=== PATIENT | female | born 1975 | race American Indian/Alaskan Native ===

== ENCOUNTER 2017-03-22 23:42 | Emergency (ER) | payer SELFPAY ==
[2017-03-23 00:18] VITALS: BMI 40.0
[2017-03-23] MEDS ORDERED: Morphine 2 mg/ml ISec IVP STA (00:59)
[2017-03-23] MEDS ORDERED: Sodium Chloride 0.9% 1,000 ML IV SCH (01:00)
--- NOTE | 2017-03-23 01:02 | ED PDOC ---
Arrival/HPI - General Chief Complaint: Abdominal Pain Time Seen by Provider: 03/23/17 00:44 Historian: Patient - History of Present Illness Narrative History of Present Illness (Text): 03/23/17 00:58 Evelina Mclean is a 41 year old female, whose past medical history includes UTI , who presents to the Emergency department complaining of lower abdominal pain radiating to right flank for past few days. Patient states pain has been intermittent for the last few days and worsened today. Patient reports associated malodorous urine. Patient notes she recently had abdominal imaging performed in December 2016, which was grossly normal. Patient also complaining of headache. Patient denies any chills, chest pain, shortness of breath, nausea, vomiting, diarrhea, neck pain, dizziness, or any other complaints. PMD: Dr. Bernard Time/Duration: < week (few days) Symptom Onset: Gradual Symptom Course: Unchanged Activities at Onset: Rest, Light Context: Home Past Medical History - Provider Review Nursing Documentation Reviewed: Yes - Past History Past History: Non-Contributing - Infectious Disease Hx of Infectious Diseases: None - Tetanus Immunization Tetanus Immunization: Unknown - Past Medical History Past Medical History: No Previous - Musculoskeletal/Rheumatological Hx Back Pain: Yes - Gastrointestinal Hx Gastrointestinal Disorders: No - Genitourinary/Gynecological Hx Genitourinary Disorders: No - Psychiatric Hx Psychophysiologic Disorder: No Hx Anxiety: No Hx Bipolar Disorder: No Hx Depression: No Hx Emotional Abuse: No Hx Hallucinations: No Hx Panic Disorder: No Hx Post Traumatic Stress Disorder: No Hx Psychosis: No Hx Physical Abuse: No Hx Schizophrenia: No Hx Sexual Abuse: No Hx Substance Use: No - Past Surgical History Past Surgical History: No Previous - Surgical History Hx Musculoskeletal Surgery: Yes (shoulder) Other/Comment: right rotator cuff surgery - Anesthesia Hx Anesthesia: Yes Hx Anesthesia Reactions: No Hx Malignant Hyperthermia: No - Suicidal Assessment Feels Threatened In Home Enviroment: No Family/Social History - Physician Review Nursing Documentation Reviewed: Yes Family/Social History: Unknown Family HX Smoking Status: Never Smoked Hx Alcohol Use: No Hx Substance Use: No Hx Substance Use Treatment: No Allergies/Home Meds Allergies/Adverse Reactions: Allergies No Known Allergies Allergy (Verified 03/23/17 00:18) Home Medications: Home Meds Medication Instructions Recorded Confirmed Ibuprofen [Motrin Tab] 800 mg PO PRN PRN 03/23/17 03/23/17 Tramadol HCl [Ultram] 50 mg PO BID PRN 03/23/17 03/23/17 Review of Systems - Physician Review All systems were reviewed & negative as marked: Yes - Review of Systems Constitutional: Normal. absent: Fevers Eyes: Normal ENT: Normal Respiratory: Normal. absent: SOB, Cough Cardiovascular: Normal. absent: Chest Pain Gastrointestinal: Abdominal Pain. absent: Diarrhea, Vomiting Genitourinary Female: Urine Output Changes (+malodorous urine) Musculoskeletal: Back Pain (+right flank pain). absent: Neck Pain Skin: Normal. absent: Rash Neurological: Headache. absent: Dizziness Endocrine: Normal Hemo/Lymphatic: Normal Psychiatric: Normal Physical Exam Vital Signs Reviewed: Yes Vital Signs Temp Pulse Resp BP Pulse Ox 03/23/17 00:22 100.7 F H 101 H 17 125/75 100 Temperature: Febrile Blood Pressure: Normal Pulse: Regular Respiratory Rate: Normal Appearance: Positive for: Well-Appearing, Non-Toxic, Comfortable Pain Distress: None Mental Status: Positive for: Alert and Oriented X 3 - Systems Exam Head: Present: Atraumatic, Normocephalic Pupils: Present: PERRL Extroacular Muscles: Present: EOMI Conjunctiva: Present: Normal Mouth: Present: Moist Mucous Membranes Neck: Present: Normal Range of Motion Respiratory/Chest: Present: Clear to Auscultation, Good Air Exchange. No: Respiratory Distress, Accessory Muscle Use Cardiovascular: Present: Regular Rate and Rhythm, Normal S1, S2. No: Murmurs Abdomen: Present: Normal Bowel Sounds. No: Tenderness, Distention, Peritoneal Signs Back: Present: Normal Inspection. No: CVA Tenderness, Midline Tenderness, Paraspinal Tenderness Upper Extremity: Present: Normal Inspection. No: Cyanosis, Edema Lower Extremity: Present: Normal Inspection. No: Edema Neurological: Present: GCS=15, CN II-XII Intact, Speech Normal Skin: Present: Warm, Dry, Normal Color. No: Rashes Psychiatric: Present: Alert, Oriented x 3, Normal Insight, Normal Concentration Medical Decision Making ED Course and Treatment: 03/23/17 00:58 Impression: 41 year old female complaining of lower abdominal pain radiating to right flank pain and malodorous urine. Plan: -- CT Abdomen and Pelvis w/o contrast -- Labs, lipase -- Urinalysis -- IV fluids -- Morphine -- Reassess and disposition Prior Visits: Notes and results from previous visits were reviewed. On 01/10/2017, pt had MRI of Abdomen performed which showed: small 12 mm hemangioma in right lobe of liver, otherwise unremarkable. Progress Notes: 03/23/17 03:26 Reviewed radiology, CT Abdomen and Pelvis shows: Dictated and Authenticated by: Sylvain Farah MD 1. No CT evidence of urolithiasis. 2. Incidental/non-acute findings are described above 03/23/17 04:04 INFORMATION SECURITY OFFICER reviewed, pt received 90 tablets of Oxycodone on 03/02/2017. 03/23/17 04:06 On reevaluation the patient feels better and is in no acute distress. I have discussed the results and plan with the patient, who expresses understanding. Patient given the opportunity to ask question, all questions were answered and there is agreement with the plan to discharge the patient home. Patient is stable for discharge. Patient was instructed to follow up with physician/clinic in 1-2 days or return if symptoms persist/worsen or new concerning symptoms arise. - Lab Interpretations Lab Results: 03/23/17 01:40 03/23/17 02:55 Lab Results 03/23/17 02:55: Sodium 138, Potassium 4.0, Chloride 104, Carbon Dioxide 23, Anion Gap 15, BUN 13, Creatinine 0.9, Est GFR ( Amer) > 60, Est GFR (Non- Af Amer) > 60, Random Glucose 96, Calcium 9.4, Total Bilirubin 0.6, AST 36, ALT 40, Alkaline Phosphatase 86, Total Protein 8.4 H, Albumin 4.0, Globulin 4.3, Albumin/Globulin Ratio 0.9 L, Lipase 122 03/23/17 01:49: Urine Color Yellow, Urine Appearance Sl cloudy, Urine pH 7.0, Ur Specific [place] 1.015, Urine Protein Trace H, Urine Glucose (UA) Negative, Urine Ketones Trace H, Urine Blood Small H, Urine Nitrate Positive H, Urine Bilirubin Negative, Urine Urobilinogen 2.0 H, Ur Leukocyte Esterase Small H, Urine RBC 1 - 3, Urine WBC 5 - 10, Ur Epithelial Cells 0 - 2, Urine Bacteria Many, Urine HCG, Qual Negative 03/23/17 01:40: WBC 8.7, RBC 4.63, Hgb 12.3, Hct 37.1, MCV 80.1, MCH 26.6, MCHC 33.2, RDW 14.6 H, Plt Count 258, MPV 9.7, Gran % 79.2 H, Lymph % (Auto) 14.6 L, [place] % (Auto) 5.3, Eos % (Auto) 0.8 L, Baso % (Auto) 0.1, Gran # 6.92 H, Lymph # 1.3, [place] # 0.5, Eos # 0.1, Baso # 0.01 I have reviewed the lab results: Yes - RAD Interpretation Narrative RAD Interpretations (Text): CT Abdomen and Pelvis shows: Dictated and Authenticated by: Sylvain Farah MD Limitations: Motion artifact - mild. Lower thorax: Mild emphysematous changes. Minimal peripheral atelectasis/ scarring. ABDOMEN: Liver: Small lesion within RIGHT lobe, grossly stable. Gallbladder and bile ducts: No calcified stones. No ductal dilation. Pancreas: Unremarkable. No ductal dilation. Spleen: No splenomegaly. Adrenals: No mass. Kidneys and ureters: No renal calculi. No hydronephrosis. Stomach and bowel: No definite mural thickening. No obstruction. Appendix: Normal caliber. No inflammation. PELVIS: Bladder: Unremarkable. No stones. Reproductive: Unremarkable as visualized. ABDOMEN and PELVIS: Intraperitoneal space: Trace free fluid within pelvis. No free air. Bones/joints: No acute fracture. Soft tissues: Unremarkable. Vasculature: Unremarkable. No aneurysm. Lymph nodes: No pathologically enlarged lymph nodes. IMPRESSION: 1. No CT evidence of urolithiasis. Radiology Orders: 03/23/17 01:02 ABD & PELVIS W/O PO OR IV CONT [CT] Stat Nuclear Physics Teacher: Radiologist - Medication Orders Current Medication Orders: Sodium Chloride (Sodium Chloride 0.9%) 1,000 mls @ 80 mls/hr IV .[id number] Last Admin: 03/23/17 01:51 Dose: 80 mls/hr Discontinued Medications Hydromorphone HCl (Dilaudid) 2 mg IVP STAT STA Stop: 03/23/17 02:55 Last Admin: 03/23/17 03:02 Dose: 2 mg Ceftriaxone Sodium (Rocephin 1 Gram Ivpb) 1 gm in 100 mls @ 200 mls/hr IVPB STAT STA PRN Reason: Protocol Stop: 03/23/17 04:29 Last Admin: 03/23/17 04:31 Dose: 200 mls/hr Morphine Sulfate (Morphine) 2 mg IVP STAT STA Stop: 03/23/17 01:00 Last Admin: 03/23/17 01:51 Dose: 2 mg Ondansetron HCl (Zofran Inj) 4 mg IVP STAT STA Stop: 03/23/17 01:43 Last Admin: 03/23/17 01:51 Dose: 4 mg Ondansetron HCl (Zofran Inj) Confirm Administered Dose 4 mg .ROUTE .STK-MED ONE Stop: 03/23/17 01:44 Last Admin: 03/23/17 01:51 Dose: - Scribe Statement The provider has reviewed the documentation as recorded by the Austin Gaona Provider Swapnilibe Attestation: All medical record entries made by the Scribe were at my direction and personally dictated by me. I have reviewed the chart and agree that the record accurately reflects my personal performance of the history, physical exam, medical decision making, and the department course for this patient. I have also personally directed, reviewed, and agree with the discharge instructions and disposition. Disposition/Present on Arrival - Present on Arrival History of DVT/PE: No History of Uncontrolled Diabetes: No Urinary Catheter: No History of Decub. Ulcer: No History Surgical Site Infection Following: None - Disposition Diagnosis: Urinary tract infection Disposition: HOME/ ROUTINE Patient Problems: Current Active Problems Problem Status Onset Urinary tract infection Acute Discharge Instructions (ExitCare): Urinary Tract Infection in Women (ED) Prescriptions: Cephalexin [Keflex] 500 mg PO BID #14 capsule Naproxen [Naprosyn Tab] 375 mg PO BID #12 tab Forms: [facility] (Azeri)
[2017-03-23 01:56] LABS: BASO # 0.01 K/mm3 (0.0-2.0); BASO % 0.1 % (0.0-3.0); EOS # 0.1 (0.0-0.7); EOS % 0.8 % (1.5-5.0); GRAN # 6.92 (1.4-6.5); GRAN % 79.2 % (50.0-68.0); HEMOGLOBIN 12.3 gm/dL (12.0-16.0); LYMPH # 1.3 (1.2-3.4); LYMPH % 14.6 % (22.0-35.0); MEAN CELL VOLUME 80.1 fL (80.0-105.0); MEAN CORPUSCULAR HEMOGLOBIN 26.6 pg (25.0-35.0); MEAN CORPUSCULAR HGB CONC 33.2 g/dl (31.0-37.0); MEAN PLATELET VOLUME 9.7 fl (7.0-11.0); MONO # 0.5 (0.1-0.6); MONO % 5.3 % (1.0-6.0); PLATELET COUNT 258 10^3/uL (120.0-450.0); RBC 4.63 10^6/uL (3.5-6.1); RED CELL DISTRIBUTION WIDTH 14.6 % (11.5-14.5); WHITE BLOOD COUNT 8.7 10^3/ul (4.5-11.0)
[2017-03-23 02:02] LABS: URINE BILIRUBIN NEGATIVE (NEGATIVE); URINE BLOOD SMALL (NEGATIVE); URINE GLUCOSE (UA) NEGATIVE (NEGATIVE); URINE LEUKOCYTE ESTERASE SMALL Leu/uL (NEGATIVE); URINE NITRATE POSITIVE (NEGATIVE); URINE PROTEIN TRACE mg/dL (<30 mg/dL)
[2017-03-23 02:13] LABS: HCG,QUALITATIVE URINE NEGATIVE (NEGATIVE); URINE APPEARANCE SL CLOUDY (CLEAR); URINE COLOR YELLOW (YELLOW)
[2017-03-23 02:15] LABS: URINE BACTERIA MANY (NEG); URINE EPITHELIAL CELLS 0 - 2 /hpf (0-5)
[2017-03-23] MEDS ORDERED: HYDROmorphone 2 mg/ml ISec IVP STA (02:54)
--- NOTE | 2017-03-23 03:20 | CT ---
EXAM: CT Abdomen and Pelvis Without Intravenous Contrast CLINICAL HISTORY: 41 years old, female; Pain; Abdominal pain; Patient HX: Rt flank pain TECHNIQUE: Axial computed tomography images of the abdomen and pelvis without intravenous contrast. This CT exam was performed using one or more of the following dose reduction techniques: automated exposure control, adjustment of the mA and/or kV according to patient size, and/or use of iterative reconstruction technique. Coronal and sagittal reformatted images were created and reviewed. COMPARISON: MR - ABDOMEN WITH CONTRAST 01/10/2017 8:20:25 AM FINDINGS: Limitations: Motion artifact - mild. Lower thorax: Mild emphysematous changes. Minimal peripheral atelectasis/scarring. ABDOMEN: Liver: Small lesion within RIGHT lobe, grossly stable. Gallbladder and bile ducts: No calcified stones. No ductal dilation. Pancreas: Unremarkable. No ductal dilation. Spleen: No splenomegaly. Adrenals: No mass. Kidneys and ureters: No renal calculi. No hydronephrosis. Stomach and bowel: No definite mural thickening. No obstruction. Appendix: Normal caliber. No inflammation. PELVIS: Bladder: Unremarkable. No stones. Reproductive: Unremarkable as visualized. ABDOMEN and PELVIS: Intraperitoneal space: Trace free fluid within pelvis. No free air. Bones/joints: No acute fracture. Soft tissues: Unremarkable. Vasculature: Unremarkable. No aneurysm. Lymph nodes: No pathologically enlarged lymph nodes. IMPRESSION: 1. No CT evidence of urolithiasis. 2. Incidental/non-acute findings are described above.
[2017-03-23 03:23] LABS: ALB/GLOB RATIO 0.9 (1.1-1.8); ALT/SGPT 40 U/L (7-56); AST/SGOT 36 U/L (15-39); BLOOD UREA NITROGEN 13 mg/dL (7-21); CALCIUM 9.4 mg/dL (8.4-10.5); GFR AFRICAN-AMERICAN > 60; GFR NON-AFRICAN AMERICAN > 60; LIPASE 122 U/L (23-300)
[2017-03-23] MEDS ORDERED: cefTRIAXone 1 gm 1 GM/100 ML BAG IVPB STA (04:00)
[2017-03-23 04:46] LABS: INR 1.17 (0.93-1.08); PARTIAL THROMBOPLASTIN TIME 20.4 Seconds (23.7-30.8); PROTHROMBIN TIME 12.6 Seconds (9.9-11.8)
[2017-03-23 04:57] VITALS: BP 117/74; PULSE 99; RESP 16; TEMP 98; O2SAT 99
== END 2017-03-23 05:08 | disposition home or self-care (01) ==
LOC: ED 23:42
DX: N39.0 Urinary tract infection, site not specified (principal)
CPT/HCPCS: 74176; 80053; 81001; 83690; 84703; 85025; 85610; 85730; 87086; 96365; 96375; 99284; J0696; J1170; J2270; J2405; J7040

== ENCOUNTER 2017-08-16 04:47 | Emergency (ER) | payer MEDICAID ==
[2017-08-16 04:48] VITALS: BMI 40.0
[2017-08-16 05:16] VITALS: TEMP 98.5; O2SAT 100
--- NOTE | 2017-08-16 05:24 | ED PDOC ---
Arrival/HPI - General Chief Complaint: Female Genitourinary Time Seen by Provider: 08/16/17 05:16 Historian: Patient - History of Present Illness Narrative History of Present Illness (Text): 08/16/17 05:24 Evelina Mclean is a 42 year old female, whose past medical history includes recurrent UTIs, who presents to the Emergency department complaining of dysuria with urinary frequency for the past few days. Patient states symptoms are consistent with previous episodes of UTI. Patient denies any fever, chills, chest pain, shortness of breath, nausea, vomiting, back pain, neck pain, headache, dizziness, or any other complaints. Time/Duration: Other (few days) Symptom Onset: Gradual Symptom Course: Unchanged Activities at Onset: Light Context: Home Past Medical History - Provider Review Nursing Documentation Reviewed: Yes - Past History Past History: Non-Contributing - Infectious Disease Hx of Infectious Diseases: None - Tetanus Immunization Tetanus Immunization: Unknown - Past Medical History Past Medical History: No Previous - Musculoskeletal/Rheumatological Hx Back Pain: Yes - Gastrointestinal Hx Gastrointestinal Disorders: No - Genitourinary/Gynecological Hx Genitourinary Disorders: No - Psychiatric Hx Psychophysiologic Disorder: No Hx Anxiety: No Hx Bipolar Disorder: No Hx Depression: No Hx Emotional Abuse: No Hx Hallucinations: No Hx Panic Disorder: No Hx Post Traumatic Stress Disorder: No Hx Psychosis: No Hx Physical Abuse: No Hx Schizophrenia: No Hx Sexual Abuse: No Hx Substance Use: No - Past Surgical History Past Surgical History: No Previous - Surgical History Hx Musculoskeletal Surgery: Yes (shoulder) Other/Comment: right rotator cuff surgery - Anesthesia Hx Anesthesia: Yes Hx Anesthesia Reactions: No Hx Malignant Hyperthermia: No - Suicidal Assessment Feels Threatened In Home Enviroment: No Family/Social History - Physician Review Nursing Documentation Reviewed: Yes Family/Social History: Unknown Family HX Smoking Status: Never Smoked Hx Alcohol Use: No Hx Substance Use: No Hx Substance Use Treatment: No Allergies/Home Meds Allergies/Adverse Reactions: Allergies No Known Allergies Allergy (Verified 08/16/17 05:16) Review of Systems - Physician Review All systems were reviewed & negative as marked: Yes - Review of Systems Constitutional: Normal. absent: Fevers Eyes: Normal ENT: Normal Respiratory: Normal. absent: SOB, Cough Cardiovascular: Normal. absent: Chest Pain Gastrointestinal: Normal. absent: Abdominal Pain, Diarrhea, Nausea, Vomiting Genitourinary Female: Dysuria, Frequency. absent: Hematuria Musculoskeletal: Normal. absent: Back Pain, Neck Pain Skin: Normal. absent: Rash Neurological: Normal. absent: Headache, Dizziness Endocrine: Normal Hemo/Lymphatic: Normal Psychiatric: Normal Physical Exam Vital Signs Reviewed: Yes Vital Signs Temp Pulse Resp BP Pulse Ox 08/16/17 07:00 98.5 F 70 16 142/82 100 08/16/17 05:14 98.5 F 91 H 19 132/88 100 Temperature: Afebrile Blood Pressure: Normal Pulse: Regular Respiratory Rate: Normal Appearance: Positive for: Well-Appearing, Non-Toxic, Comfortable Pain Distress: None Mental Status: Positive for: Alert and Oriented X 3 - Systems Exam Head: Present: Atraumatic, Normocephalic Pupils: Present: PERRL Extroacular Muscles: Present: EOMI Conjunctiva: Present: Normal Mouth: Present: Moist Mucous Membranes Neck: Present: Normal Range of Motion Respiratory/Chest: Present: Clear to Auscultation, Good Air Exchange. No: Respiratory Distress, Accessory Muscle Use Cardiovascular: Present: Regular Rate and Rhythm, Normal S1, S2. No: Murmurs Abdomen: Present: Normal Bowel Sounds. No: Tenderness, Distention, Peritoneal Signs Back: Present: Normal Inspection Upper Extremity: Present: Normal Inspection. No: Cyanosis, Edema Lower Extremity: Present: Normal Inspection. No: Edema Neurological: Present: GCS=15, CN II-XII Intact, Speech Normal Skin: Present: Warm, Dry, Normal Color. No: Rashes Psychiatric: Present: Alert, Oriented x 3, Normal Insight, Normal Concentration Medical Decision Making ED Course and Treatment: 08/16/17 05:24 Impression: 42 year old female complaining of dysuria and urinary frequency for past few days. Differential Diagnosis included but are not limited to: UTI Plan: -- UA -- Reassess and disposition Prior Visits: Notes and results from previous visits were reviewed. On 03/23/2017, pt was seen in the Emergency department for lwoer abdominal pain radiating to right flank. Pt was d/c home on Keflex. Progress Notes: - Lab Interpretations Lab Results: Lab Results 08/16/17 05:00: Urine Color Yellow, Urine Appearance Sl cloudy, Urine pH 6.0, Ur Specific [place] 1.025, Urine Protein Negative, Urine Glucose (UA) Negative, Urine Ketones Trace H, Urine Blood Negative, Urine Nitrate Positive H, Urine Bilirubin Negative, Urine Urobilinogen 1.0 H, Ur Leukocyte Esterase Trace H, Urine RBC 0 - 2, Urine WBC 5 - 10, Ur Epithelial Cells 3 - 4, Urine Bacteria Many, Urine HCG, Qual Negative - Medication Orders Current Medication Orders: Discontinued Medications Cephalexin Monohydrate (Keflex) 500 mg PO ONCE STA PRN Reason: Protocol Stop: 08/16/17 06:46 Last Admin: 08/16/17 06:59 Dose: 500 mg Phenazopyridine HCl (Pyridium) 200 mg PO PC STA Stop: 08/16/17 06:47 Last Admin: 08/16/17 06:59 Dose: 200 mg - Scribe Statement The provider has reviewed the documentation as recorded by the Austin Gaona Provider Scribe Attestation: All medical record entries made by the Scribe were at my direction and personally dictated by me. I have reviewed the chart and agree that the record accurately reflects my personal performance of the history, physical exam, medical decision making, and the department course for this patient. I have also personally directed, reviewed, and agree with the discharge instructions and disposition. Disposition/Present on Arrival - Present on Arrival Any Indicators Present on Arrival: No History of DVT/PE: No History of Uncontrolled Diabetes: No Urinary Catheter: No History of Decub. Ulcer: No History Surgical Site Infection Following: None - Disposition Have Diagnosis and Disposition been Completed?: Yes Diagnosis: UTI (urinary tract infection) Disposition: HOME/ ROUTINE Disposition Time: 06:50 Patient Plan: Discharge Condition: STABLE Discharge Instructions (ExitCare): Urinary Tract Infection in Women (ED) Additional Instructions: Take meds as prescribed/drink plenty of liquids/follow up with your doctor this week Prescriptions: Cephalexin [cephalexin] 500 mg PO BID #14 cap Phenazopyridine [Pyridium] 200 mg PO TID #15 tab Forms: [facility] ([place]an), WORK NOTE
[2017-08-16 06:14] LABS: URINE BILIRUBIN NEGATIVE (NEGATIVE); URINE BLOOD NEGATIVE (NEGATIVE); URINE GLUCOSE (UA) NEGATIVE (NEGATIVE); URINE LEUKOCYTE ESTERASE TRACE Leu/uL (NEGATIVE); URINE NITRATE POSITIVE (NEGATIVE); URINE PROTEIN NEGATIVE mg/dL (<30 mg/dL)
[2017-08-16 06:21] LABS: URINE APPEARANCE SL CLOUDY (CLEAR); URINE COLOR YELLOW (YELLOW)
[2017-08-16 06:22] LABS: HCG,QUALITATIVE URINE NEGATIVE (NEGATIVE)
[2017-08-16 06:50] LABS: URINE BACTERIA MANY (NEG); URINE RBC 0 - 2 /hpf (0-2)
[2017-08-16 07:01] VITALS: BP 142/82; PULSE 70; RESP 16
== END 2017-08-16 07:00 | disposition home or self-care (01) ==
LOC: ED 04:47
DX: N39.0 Urinary tract infection, site not specified (principal)

== ENCOUNTER 2018-02-11 15:42 | Emergency (ER) | payer MEDICAID ==
[2018-02-11 16:05] VITALS: BMI 43.4
[2018-02-11 16:12] VITALS: RESP 18; TEMP 98.6; O2SAT 100
--- NOTE | 2018-02-11 17:29 | RAD ---
HISTORY: abd pain/back pain COMPARISON: No prior. FINDINGS: LUNGS: No active pulmonary disease. PLEURA: No significant pleural effusion identified, no pneumothorax apparent. CARDIOVASCULAR: Prominence of the left hilar vascular markings is questioned. Follow-up chest CT may be helpful to better characterize the left hilum as underlying lesion or lymphadenopathy is not excluded here. OSSEOUS STRUCTURES: No significant abnormalities. VISUALIZED UPPER ABDOMEN: Normal. OTHER FINDINGS: None. IMPRESSION: No acute infiltrate, pleural effusion or pneumothorax. Cardiac size normal. Prominence at the left hilar region is seen which may be due to an vascular overlap. This may be confirmed by contrast CT the chest as lymphadenopathy or other lesion is not excluded the left hilar region.
[2018-02-11 17:57] LABS: URINE BILIRUBIN NEGATIVE (NEGATIVE); URINE BLOOD NEGATIVE (NEGATIVE); URINE GLUCOSE (UA) NEGATIVE (NEGATIVE); URINE LEUKOCYTE ESTERASE SMALL Leu/uL (NEGATIVE); URINE PROTEIN NEGATIVE mg/dL (<30 mg/dL); URINE UROBILINOGEN 0.2 E.U./dL (<1 E.U./dL)
[2018-02-11 17:58] LABS: BASO # 0.02 K/mm3 (0.0-2.0); BASO % 0.3 % (0.0-3.0); EOS # 0.1 (0.0-0.7); EOS % 1.6 % (1.5-5.0); GRAN # 4.07 (1.4-6.5); GRAN % 58.9 % (50.0-68.0); HEMOGLOBIN 11.8 g/dL (12.0-16.0); LYMPH # 2.2 (1.2-3.4); LYMPH % 31.8 % (22.0-35.0); MEAN CORPUSCULAR HEMOGLOBIN 26.6 pg (25.0-35.0); MEAN CORPUSCULAR HGB CONC 33.7 g/dl (31.0-37.0); MEAN PLATELET VOLUME 10.1 fl (7.0-11.0); MONO # 0.5 (0.1-0.6); MONO % 7.4 % (1.0-6.0); RBC 4.43 10^6/uL (3.5-6.1); RED CELL DISTRIBUTION WIDTH 13.8 % (11.5-14.5); WHITE BLOOD COUNT 6.9 10^3/ul (4.5-11.0)
[2018-02-11 18:01] LABS: ALBUMIN 4.4 g/dL (3.0-4.8); ALT/SGPT 32 U/L (7-56); AST/SGOT 42 U/L (14-36); BLOOD UREA NITROGEN 13 mg/dL (7-21); CALCIUM 9.5 mg/dL (8.4-10.5); GFR AFRICAN-AMERICAN > 60; GFR NON-AFRICAN AMERICAN > 60; LIPASE 119 U/L (23-300)
[2018-02-11 18:16] LABS: URINE APPEARANCE CLEAR (CLEAR); URINE COLOR YELLOW (YELLOW)
[2018-02-11 18:36] LABS: URINE BACTERIA MANY (NEG); URINE RBC 0 - 2 /hpf (0-2)
--- NOTE | 2018-02-11 18:41 | ED PDOC ---
Arrival/HPI - General Historian: Patient - History of Present Illness Time/Duration: Other (2 days) Symptom Onset: Gradual Symptom Course: Worsening Quality: Aching, Stabbing Severity Level: Mild <Carmen Florian - Last Filed: 02/11/18 20:15> <Montez Shankar Milena - Last Filed: 02/12/18 06:01> - General Chief Complaint: Back Pain Time Seen by Provider: 02/11/18 16:58 - History of Present Illness Narrative History of Present Illness (Text): 02/11/18 18:56 42-year-old female presents today with a 2 day history of right upper back pain right abdominal pain and urinary symptoms. Patient states she has a history of urinary tract infection with similar symptoms in the past. Patient denies fevers or chills. Patient states she's been feeling a little nauseous. She denies vomiting diarrhea or constipation. She denies chest pain or shortness of breath. Patient states she has a sharp pain in the right upper back along with achy pain in the right upper abdomen. She states she's been having dysuria with urinary frequency. She denies vaginal bleeding or vaginal discharge. No medications have been taken for pain at home. (Carmen Florian) Past Medical History - Provider Review Nursing Documentation Reviewed: Yes - Travel History Have you recently traveled outside [place] w/in the past 3 mons?: No - Past History Past History: Non-Contributing - Infectious Disease Hx of Infectious Diseases: None - Tetanus Immunization Tetanus Immunization: Unknown - Past Medical History Past Medical History: No Previous - Musculoskeletal/Rheumatological Hx Back Pain: Yes - Gastrointestinal Hx Gastrointestinal Disorders: No - Genitourinary/Gynecological Hx Genitourinary Disorders: No - Psychiatric Hx Psychophysiologic Disorder: No Hx Anxiety: No Hx Bipolar Disorder: No Hx Depression: No Hx Emotional Abuse: No Hx Hallucinations: No Hx Panic Disorder: No Hx Post Traumatic Stress Disorder: No Hx Psychosis: No Hx Physical Abuse: No Hx Schizophrenia: No Hx Sexual Abuse: No Hx Substance Use: No - Past Surgical History Past Surgical History: No Previous - Surgical History Hx Musculoskeletal Surgery: Yes (shoulder) Other/Comment: right rotator cuff surgery - Anesthesia Hx Anesthesia: Yes Hx Anesthesia Reactions: No Hx Malignant Hyperthermia: No - Suicidal Assessment Feels Threatened In Home Enviroment: No <Carmen Florian - Last Filed: 02/11/18 20:15> Family/Social History - Physician Review Nursing Documentation Reviewed: Yes Family/Social History: Unknown Family HX Smoking Status: Never Smoked Hx Alcohol Use: No Hx Substance Use: No Hx Substance Use Treatment: No <ChiquiCarmen T - Last Filed: 02/11/18 20:15> Allergies/Home Meds <Patrick Florianina T - Last Filed: 02/11/18 20:15> <Montez Shankar P - Last Filed: 02/12/18 06:01> Allergies/Adverse Reactions: Allergies No Known Allergies Allergy (Verified 02/11/18 16:12) Review of Systems - Review of Systems Constitutional: absent: Fatigue, Fevers Respiratory: absent: SOB, Cough Cardiovascular: absent: Chest Pain, Palpitations Gastrointestinal: Abdominal Pain, Nausea. absent: Constipation, Diarrhea, Vomiting Genitourinary Female: Dysuria, Frequency. absent: Hematuria, Vaginal Bleeding, Vaginal Discharge Musculoskeletal: Back Pain. absent: Arthralgias, Neck Pain Skin: absent: Rash, Pruritis Neurological: absent: Headache, Dizziness Psychiatric: absent: Anxiety, Depression <Carmen Florian T - Last Filed: 02/11/18 20:15> Physical Exam Vital Signs Reviewed: Yes Temperature: Afebrile Blood Pressure: Normal Pulse: Regular Respiratory Rate: Normal Appearance: Positive for: Well-Appearing, Non-Toxic, Comfortable Pain Distress: None Mental Status: Positive for: Alert and Oriented X 3 - Systems Exam Head: Present: Atraumatic Mouth: Present: Moist Mucous Membranes Neck: Present: Normal Range of Motion Respiratory/Chest: Present: Clear to Auscultation, Good Air Exchange. No: Respiratory Distress, Accessory Muscle Use Cardiovascular: Present: Regular Rate and Rhythm, Normal S1, S2. No: Murmurs Abdomen: Present: Tenderness (minimal ruq and rlq tenderness). No: Distention, Peritoneal Signs, Rebound, Guarding Back: Present: Normal Inspection, Paraspinal Tenderness (minimal right sided flank tenderness). No: CVA Tenderness, Midline Tenderness Upper Extremity: Present: Normal ROM Lower Extremity: Present: Normal ROM Neurological: Present: GCS=15, Speech Normal Skin: Present: Warm, Dry, Normal Color. No: Rashes Psychiatric: Present: Alert, Oriented x 3 <Carmen Florian T - Last Filed: 02/11/18 20:15> Vital Signs Temp Pulse Resp BP Pulse Ox 02/11/18 20:21 98.6 F 83 18 120/62 100 02/11/18 18:00 98.6 F 80 18 118/67 100 02/11/18 16:05 98.6 F 86 18 116/77 100 Medical Decision Making Reassessment Condition: Re-examined, Improved <Carmen Florian T - Last Filed: 02/11/18 20:15> - EKG Interpretation Interpreted by ED Physician: Yes Type: 12 lead EKG <ShankarMontez P - Last Filed: 02/12/18 06:01> ED Course and Treatment: 02/11/18 18:39 Patient is nontoxic well appearing with stable vital signs presenting with back and abdominal pain and dysuria and urinary frequency. CBC wnl CMP wnl ast; 42 Lipase wnl Urinalysis + leukocytes, + yeast, + wbcs, + bacteria cxr; FINDINGS: LUNGS: No active pulmonary disease. PLEURA: No significant pleural effusion identified, no pneumothorax apparent. CARDIOVASCULAR: Prominence of the left hilar vascular markings is questioned. Follow-up chest CT may be helpful to better characterize the left hilum as underlying lesion or lymphadenopathy is not excluded here. OSSEOUS STRUCTURES: No significant abnormalities. VISUALIZED UPPER ABDOMEN: Normal. OTHER FINDINGS: None. IMPRESSION: No acute infiltrate, pleural effusion or pneumothorax. Cardiac size normal. Prominence at the left hilar region is seen which may be due to an vascular overlap. This may be confirmed by contrast CT the chest as lymphadenopathy or other lesion is not excluded the left hilar region. Ultrasound FINDINGS: LIVER: Measures 13.3 cm. There is diffuse increased echogenicity of the liver parenchyma. There is a 1.8 x 1.3 x 1.7 cm well-circumscribed round homogeneously hyperechoic lesion in the right hepatic lobe. . No intrahepatic bile duct dilatation. GALLBLADDER: There are no gallstones, wall thickening or pericholecystic fluid. The sonographic Chambers's sign is negative. COMMON BILE DUCT: Measures 5.0 mm. No stones. No dilatation. PANCREAS: Unremarkable as visualized. No mass. No ductal dilatation. RIGHT KIDNEY: Measures 10.4cm. Normal echogenicity. No calculus, mass, or hydronephrosis. LEFT KIDNEY: Measures 10.6cm. Normal echogenicity. No calculus, mass, or hydronephrosis. SPLEEN: Normal in size and contour. No mass. AORTA: No aneurysmal dilatation. IVC: Unremarkable. OTHER FINDINGS: None. IMPRESSION: Diffuse increased echogenicity in the liver may reflect hepatic steatosis however parenchymal infectious/ inflammatory etiologies cannot be entirely excluded. Clinical and laboratory correlation is advised. 1.8 cm hemangioma in the right hepatic lobe. No cholelithiasis or biliary dilatation. CAT scan: FINDINGS: Lung bases: Heart size is normal. There is left hilar and subcarinal adenopathy. There is a small 6.4 mm pleural-based left lower lobe nodule, seen on the prior study ABDOMEN: Liver: There is a 1.7 x 1.5 cm partially enhancing low attenuation lesion in the right lobe of the liver. There is a tiny low attenuation lesion in the left lobe of the liver too small to characterize. Liver is mildly enlarged. There is fatty infiltration. Gallbladder and bile ducts: unremarkable Pancreas: unremarkable Spleen: unremarkable Adrenals: Right adrenal is unremarkable. There is mild thickening of left adrenal. Kidneys and ureters: unremarkable Stomach and bowel: Stomach is partially distended with an air-fluid level. Rotation is normal. There is fluid and air throughout the small bowel. There is no obstruction. Ileocecal region is unremarkable. There is moderately large amount of stool throughout the colon. PELVIS: Appendix: See stomach and bowel Bladder: unremarkable Reproductive: Uterus and adnexal structures are unremarkable. ABDOMEN and PELVIS: Intraperitoneal space: There is no free air or free fluid. Bones/joints: There are no acute osseous abnormalities. There is minimal spondylosis. Soft tissues: unremarkable Vasculature: Vascular structures are unremarkable. Lymph nodes: There is shotty adenopathy IMPRESSION: Mildly enlarged fatty liver; probable small right lobe hemangioma; possible constipation; no CT findings of appendicitis Additional nonemergent findings as described above. Patient reassessment: pt is non toxic well appearing; no distress stable vitals. Patient feeling better in no distress. I discussed all results in depth with the patient. I've advised the patient of hemangioma on ultrasound and CT. pt states she knows about hemangioma. I've advised the patient of chest x-ray findings that show prominence of the left hilar region. I've advised follow-up with the primary care physician regarding this xray finding and advised further follow-up and possible outpatient CT to rule out any underlying abnormality. pt was given a copy of CXr to bring to PMD. Keflex given by mouth for UTI Patient was advised to follow-up with a primary care physician within the next 2 days. Patient was advised immediate return if symptoms worsen persist or if new concerning symptoms develop Patient verbalizes understanding of discharge instructions and need for immediate followup. all aspects of this case were discussed the attending of record. Impression: Urinary tract infection, Abdominal pain, hemangioma, abnormal chest x-ray, fatty liver Motrin every 6 hours as needed for pain Keflex one capsule twice daily 7 days Increase fluids Follow-up with primary care physician within the next 2 days regarding abnormal chest x-ray Follow-up with the GI specialist within the next 2 days Return immediately if symptoms worsen persist or if new concerning symptoms develop 02/11/18 20:05 (Carmen Florian) 02/11/18 EKG shows NSR at [address] changes. Normal axis and intervals. Interpreted by me. (Montez Shankar) - Lab Interpretations Lab Results: 02/11/18 17:15 02/11/18 17:15 Lab Results 02/11/18 17:15: WBC 6.9 D, RBC 4.43, Hgb 11.8 L, Hct 35.0 L, MCV 79.0 L, MCH 26.6, MCHC 33.7, RDW 13.8, Plt Count 315, MPV 10.1, Gran % 58.9, Lymph % (Auto) 31.8, [place] % (Auto) 7.4 H, Eos % (Auto) 1.6, Baso % (Auto) 0.3, Gran # 4.07, Lymph # (Auto) 2.2, [place] # (Auto) 0.5, Eos # (Auto) 0.1, Baso # (Auto) 0.02 02/11/18 17:15: Sodium 141, Potassium 4.3, Chloride 103, Carbon Dioxide 26, Anion Gap 16, BUN 13, Creatinine 0.7, Est GFR ( Amer) > 60, Est GFR (Non- Af Amer) > 60, Random Glucose 85, Calcium 9.5, Total Bilirubin 0.6, AST 42 H, ALT 32, Alkaline Phosphatase 91, Total Protein 8.8 H, Albumin 4.4, Globulin 4.4 , Albumin/Globulin Ratio 1.0 L, Lipase 119 02/11/18 17:15: Urine Color Yellow, Urine Appearance Clear, Urine pH 6.0, Ur Specific [place] >= 1.030, Urine Protein Negative, Urine Glucose (UA) Negative, Urine Ketones Negative, Urine Blood Negative, Urine Nitrate Negative, Urine Bilirubin Negative, Urine Urobilinogen 0.2, Ur Leukocyte Esterase Small H, Urine RBC 0 - 2, Urine WBC 10 - 15, Ur Epithelial Cells 10 - 12, Urine Bacteria Many, Urine Other [place] - RAD Interpretation Radiology Orders: 02/11/18 16:58 ABD & PELVIS IV CONTRAST ONLY [CT] Stat CHEST PORTABLE [RAD] Stat ABDOMEN COMPLETE [US] Stat - Medication Orders Current Medication Orders: Discontinued Medications Cephalexin Monohydrate (Keflex) 500 mg PO STAT STA PRN Reason: Protocol Stop: 02/11/18 20:07 Last Admin: 02/11/18 20:13 Dose: 500 mg Ketorolac Tromethamine (Toradol) 30 mg IVP STAT STA Stop: 02/11/18 18:45 Last Admin: 02/11/18 19:08 Dose: 30 mg MAR Pain Assessment Document 02/11/18 19:08 LA (Rec: 02/11/18 19:09 KAREN PEREIRA-PC) Pain Reassessment Is this a pain reassessment? No Sleep Is patient sleeping during reassessment? No Presence of Pain Presence of Pain Yes Pain Scale Used Pain Scale Used Numeric Location Upper or Lower Lower Pain Location Body Site Back Description Description Intermittent Intensity of Pain at present 6 IVP Administration Document 02/11/18 19:08 LA (Rec: 02/11/18 19:09 KAREN PEREIRA-PC) Charges for Administration # of IVP Administrations 1 Disposition/Present on Arrival - Present on Arrival Any Indicators Present on Arrival: No History of DVT/PE: No History of Uncontrolled Diabetes: No Urinary Catheter: No History of Decub. Ulcer: No History Surgical Site Infection Following: None - Disposition Have Diagnosis and Disposition been Completed?: Yes Disposition Time: 20:04 Patient Plan: Discharge <Carmen Florian - Last Filed: 02/11/18 20:15> <Montez Shankar - Last Filed: 02/12/18 06:01> - Disposition Diagnosis: Urinary tract infection, Yeast infection, Abdominal pain, Hemangioma of liver, Fatty liver, Abnormal chest xray Disposition: HOME/ ROUTINE Condition: GOOD Discharge Instructions (ExitCare): Urinary Tract Infections in Adults, Nonalcoholic Fatty Liver Disease (DC), Liver Hemangioma Additional Instructions: Motrin every 6 hours as needed for pain Keflex one capsule twice daily 7 days Increase fluids Follow-up with primary care physician within the next 2 days regarding abnormal chest x-ray Follow-up with the GI specialist within the next 2 days Return immediately if symptoms worsen persist or if new concerning symptoms develop Prescriptions: Cephalexin [Keflex] 500 mg PO BID #14 capsule Fluconazole [Diflucan] 150 mg PO ONCE #1 tab Ibuprofen [Motrin] 600 mg PO Q6H PRN #20 tab PRN Reason: pain/fever reduction Referrals: Jaylyn Bernard MD [Primary Care Provider] - Follow up with primary Carlin Weller MD [Staff Provider] - Follow up with primary Forms: [facility] ([place]), WORK NOTE
--- NOTE | 2018-02-11 18:49 | US ---
HISTORY: abdominal pain, right upper/right lower COMPARISON: CT abdomen from 03/23/2017 and ultrasound abdomen from 01/03/2017 TECHNIQUE: Grayscale imaging was performed. FINDINGS: LIVER: Measures 13.3 cm. There is diffuse increased echogenicity of the liver parenchyma. There is a 1.8 x 1.3 x 1.7 cm well-circumscribed round homogeneously hyperechoic lesion in the right hepatic lobe. . No intrahepatic bile duct dilatation. GALLBLADDER: There are no gallstones, wall thickening or pericholecystic fluid. The sonographic Chambers's sign is negative. COMMON BILE DUCT: Measures 5.0 mm. No stones. No dilatation. PANCREAS: Unremarkable as visualized. No mass. No ductal dilatation. RIGHT KIDNEY: Measures 10.4cm. Normal echogenicity. No calculus, mass, or hydronephrosis. LEFT KIDNEY: Measures 10.6cm. Normal echogenicity. No calculus, mass, or hydronephrosis. SPLEEN: Normal in size and contour. No mass. AORTA: No aneurysmal dilatation. IVC: Unremarkable. OTHER FINDINGS: None. IMPRESSION: Diffuse increased echogenicity in the liver may reflect hepatic steatosis however parenchymal infectious/ inflammatory etiologies cannot be entirely excluded. Clinical and laboratory correlation is advised. 1.8 cm hemangioma in the right hepatic lobe. No cholelithiasis or biliary dilatation.
--- NOTE | 2018-02-11 19:30 | CT ---
EXAM: CT Abdomen and Pelvis With Intravenous Contrast EXAM DATE/TIME: 02/11/2018 4:58 PM CLINICAL HISTORY: 42 years old, female; Pain; Abdominal pain; Additional info: Abd pain TECHNIQUE: Axial computed tomography images of the abdomen and pelvis with intravenous contrast. All CT scans at this facility use at least one of these dose optimization techniques: automated exposure control; mA and/or kV adjustment per patient size (includes targeted exams where dose is matched to clinical indication); or iterative reconstruction. Coronal and sagittal reformatted images were created and reviewed. COMPARISON: CT - ABD PELVIS W/O PO OR IV CONT 2017-03-23 02:29 FINDINGS: Lung bases: Heart size is normal. There is left hilar and subcarinal adenopathy. There is a small 6.4 mm pleural-based left lower lobe nodule, seen on the prior study ABDOMEN: Liver: There is a 1.7 x 1.5 cm partially enhancing low attenuation lesion in the right lobe of the liver. There is a tiny low attenuation lesion in the left lobe of the liver too small to characterize. Liver is mildly enlarged. There is fatty infiltration. Gallbladder and bile ducts: unremarkable Pancreas: unremarkable Spleen: unremarkable Adrenals: Right adrenal is unremarkable. There is mild thickening of left adrenal. Kidneys and ureters: unremarkable Stomach and bowel: Stomach is partially distended with an air-fluid level. Rotation is normal. There is fluid and air throughout the small bowel. There is no obstruction. Ileocecal region is unremarkable. There is moderately large amount of stool throughout the colon. PELVIS: Appendix: See stomach and bowel Bladder: unremarkable Reproductive: Uterus and adnexal structures are unremarkable. ABDOMEN and PELVIS: Intraperitoneal space: There is no free air or free fluid. Bones/joints: There are no acute osseous abnormalities. There is minimal spondylosis. Soft tissues: unremarkable Vasculature: Vascular structures are unremarkable. Lymph nodes: There is shotty adenopathy IMPRESSION: Mildly enlarged fatty liver; probable small right lobe hemangioma; possible constipation; no CT findings of appendicitis Additional nonemergent findings as described above.
[2018-02-11 20:23] VITALS: BP 120/62; PULSE 83
--- NOTE | 2018-02-11 22:00 | CARD ---
APPROVED REPORT EKG Measurement Heart [id number] <Conclusion> Normal sinus rhythm Normal ECG
== END 2018-02-11 20:21 | disposition home or self-care (01) ==
LOC: ED 15:42
DX: N39.0 Urinary tract infection, site not specified (principal); B37.9 Candidiasis, unspecified; D18.09 Hemangioma of other sites; K76.0 Fatty (change of) liver, not elsewhere classified; R91.8 Other nonspecific abnormal finding of lung field; R10.9 Unspecified abdominal pain
CPT/HCPCS: 71045; 74177; 76700; 80053; 81001; 83690; 85025; 87086; 93005; 96374; 99284; J1885; Q9967

== ENCOUNTER 2018-11-26 09:00 | Outpatient (CLI) | payer MEDICAID, OTHER | END 2018-11-26 09:01 | disposition home or self-care (01) | LOC: RAD 09:00 | DX: R91.1 Solitary pulmonary nodule (principal) ==

== ENCOUNTER 2018-12-24 16:21 | Emergency (ER) | payer MEDICAID ==
[2018-12-24 16:35] VITALS: BMI 43.5
[2018-12-24 16:36] VITALS: RESP 18; TEMP 98.9
--- NOTE | 2018-12-24 16:50 | ED PDOC ---
Arrival/HPI - General Chief Complaint: Female Genitourinary Time Seen by Provider: 12/24/18 16:22 Historian: Patient - History of Present Illness Narrative History of Present Illness (Text): 12/24/18 16:47 43-year-old female presents to the emergency room complaining of crampy lower abdominal pain associated with intermittent vaginal spotting since December 22. 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 Patient states that she is approximately 10 weeks . Otherwise the patient reports no fever, vomiting, urinary symptoms, vaginal bleeding at this time, vaginal discharge. Patient reports no prior ultrasound for this . Past Medical History - Provider Review Primary Care Provider: Jaylyn Bernard - Past History Past History: Non-Contributing - Infectious Disease Hx of Infectious Diseases: None - Tetanus Immunization Tetanus Immunization: Unknown - Past Medical History Past Medical History: No Previous - Musculoskeletal/Rheumatological Hx Back Pain: Yes - Gastrointestinal Hx Gastrointestinal Disorders: No - Genitourinary/Gynecological Hx Genitourinary Disorders: No - Psychiatric Hx Psychophysiologic Disorder: No Hx Anxiety: No Hx Bipolar Disorder: No Hx Depression: No Hx Emotional Abuse: No Hx Hallucinations: No Hx Panic Disorder: No Hx Post Traumatic Stress Disorder: No Hx Psychosis: No Hx Physical Abuse: No Hx Schizophrenia: No Hx Sexual Abuse: No Hx Substance Use: No - Past Surgical History Past Surgical History: No Previous - Surgical History Hx Musculoskeletal Surgery: Yes (shoulder) Other/Comment: right rotator cuff surgery - Anesthesia Hx Anesthesia: Yes Hx Anesthesia Reactions: No Hx Malignant Hyperthermia: No - Suicidal Assessment Feels Threatened In Home Enviroment: No Family/Social History Family/Social History: No Known Family HX Smoking Status: Never Smoked Hx Alcohol Use: No Hx Substance Use: No Hx Substance Use Treatment: No Allergies/Home Meds Allergies/Adverse Reactions: Allergies No Known Allergies Allergy (Verified 12/24/18 16:35) Home Medications: Home Meds Medication Instructions Recorded Confirmed No Known Home Med 12/24/18 12/24/18 Review of Systems - Review of Systems Constitutional: absent: Fatigue, Fevers Respiratory: absent: SOB, Cough Cardiovascular: absent: Chest Pain, Palpitations Gastrointestinal: Abdominal Pain. absent: Nausea, Vomiting Genitourinary Female: Vaginal Bleeding. absent: Dysuria, Frequency, Hematuria, Vaginal Discharge Musculoskeletal: absent: Arthralgias, Back Pain, Neck Pain Skin: absent: Rash, Skin Lesions Neurological: absent: Headache, Dizziness Physical Exam Vital Signs Temp Pulse Resp BP Pulse Ox 12/24/18 16:35 98.9 F 97 H 18 123/70 99 Temperature: Afebrile Blood Pressure: Normal Pulse: Regular Respiratory Rate: Normal Appearance: Positive for: Well-Appearing, Non-Toxic, Comfortable Pain Distress: None Mental Status: Positive for: Alert and Oriented X 3 - Systems Exam Head: Present: Atraumatic, Normocephalic Pupils: Present: PERRL Extroacular Muscles: Present: EOMI Conjunctiva: Present: Normal Mouth: Present: Moist Mucous Membranes Neck: Present: Normal Range of Motion Respiratory/Chest: Present: Clear to Auscultation, Good Air Exchange. No: Respiratory Distress, Accessory Muscle Use Cardiovascular: Present: Regular Rate and Rhythm, Normal S1, S2. No: Murmurs Abdomen: No: Tenderness, Distention, Peritoneal Signs, Rebound, Guarding Back: Present: Normal Inspection. No: CVA Tenderness Upper Extremity: Present: Normal Inspection. No: Cyanosis, Edema Lower Extremity: Present: Normal Inspection. No: Edema Neurological: Present: GCS=15, CN II-XII Intact, Speech Normal, Motor Func Grossly Intact, Normal Sensory Function Skin: Present: Warm, Dry, Normal Color. No: Rashes Psychiatric: Present: Alert, Oriented x 3, Normal Insight, Normal Concentration Medical Decision Making ED Course and Treatment: 12/24/18 16:50 Plan : - Labs - UA, urine cx - Reassess / disposition - TV US 12/24/18 17:43 Ultrasound transvaginal : Well-formed gestational sac without yolk sac or pole. Mean sac measurement 8.6 mm out of range. Below threshold for calculation of reliable gestational age. Simple cyst left adnexa. Labs reviewed : hgb 11, beta quant 894. UA (-). Type and screen (04/17/13) : AB+ On reevaluation, patient remains awake alert and oriented 3 in no acute distress. Diagnostic results d/w the patient, advised that she is very early in her and will need to follow up with her microfabrication engineer manager or return to the ER (if unable to see her microfabrication engineer manager) after 1 week for repeat beta quant and possibly repeat US. Advised to return to the emergency room at any time for any new or worsening symptoms. Patient states she fully agrees with and understands discharge instructions. States that she agrees with the plan and disposition. Verbalized and repeated discharge instructions and plan. I have given the patient opportunity to ask any additional questions. - RAD Interpretation Radiology Orders: 12/24/18 16:40 TRANSVAGINAL [US] Stat - PA / SUPPORT COORDINATOR / Resident Statement MD/DO has reviewed & agrees with the documentation as recorded. Disposition/Present on Arrival - Present on Arrival Any Indicators Present on Arrival: No History of DVT/PE: No History of Uncontrolled Diabetes: No Urinary Catheter: No History of Decub. Ulcer: No History Surgical Site Infection Following: None - Disposition Have Diagnosis and Disposition been Completed?: Yes Diagnosis: Early stage of , Abdominal pain affecting Disposition: HOME/ ROUTINE Disposition Time: 17:30 Patient Plan: Discharge Patient Problems: Current Active Problems Problem Status Onset Early stage of Acute Abdominal pain affecting Acute Condition: STABLE Discharge Instructions (ExitCare): Care, - The First Month, - The Second Month Additional Instructions: Thank you for letting us take care of you today. You were treated for abdominal pain in early . The emergency medical care you received today was directed at your acute symptoms. Take over the counter vitamins. It may take several days for your symptoms to resolve. Return to the Emergency Department if your symptoms worsen, do not improve, or if you have any other problems. Please contact your microfabrication engineer manager doctor in 1 week for re-evaluation and follow up, for repeat beta quant testing and possibly repeat US. Bring any paperwork you were given at discharge with you along with any medications you are taking to your follow up visit. Our treatment cannot replace ongoing medical care by a primary care provider (PCP) outside of the emergency department. Thank you for allowing the [facility] team to be part of your care today. If you had a urine culture: It will take several days for the results, if any change in treatment is needed we will contact you. Your US shows the following result. Ultrasound transvaginal : Well-formed gestational sac without yolk sac or pole. Mean sac measurement 8.6 mm out of range. Below threshold for calculation of reliable gestational age. Simple cyst left adnexa. Your beta quant 894. Your type and screen AB+ Referrals: Jaylyn Bernard MD [Primary Care Provider] - Follow up with primary Forms: [employer] (Austrian), WORK NOTE
[2018-12-24 17:02] LABS: URINE BILIRUBIN NEGATIVE (NEGATIVE); URINE BLOOD NEGATIVE (NEGATIVE); URINE GLUCOSE (UA) NEGATIVE (NEGATIVE); URINE LEUKOCYTE ESTERASE NEGATIVE Leu/uL (NEGATIVE); URINE PROTEIN NEGATIVE mg/dL (<30 mg/dL)
[2018-12-24 17:04] LABS: BASO # 0.01 K/mm3 (0.0-2.0); BASO % 0.1 % (0.0-3.0); EOS # 0.2 (0.0-0.7); LYMPH # 2.3 (1.2-3.4); LYMPH % 26.4 % (22.0-35.0); MEAN CELL VOLUME 79.7 fl (80.0-105.0); MEAN CORPUSCULAR HEMOGLOBIN 26.3 pg (25.0-35.0); MEAN CORPUSCULAR HGB CONC 32.9 g/dl (31.0-37.0); MEAN PLATELET VOLUME 9.8 fl (7.0-11.0); MONO # 0.6 (0.1-0.6); MONO % 6.4 % (1.0-6.0); RBC 4.19 10^6/uL (3.5-6.1); RED CELL DISTRIBUTION WIDTH 13.9 % (11.5-14.5); WHITE BLOOD COUNT 8.9 10^3/uL (4.5-11.0)
[2018-12-24 17:06] LABS: URINE APPEARANCE CLEAR (CLEAR); URINE COLOR YELLOW (YELLOW)
[2018-12-24 17:25] LABS: ALT/SGPT 15 U/L (7-56); AST/SGOT 33 U/L (14-36); BLOOD UREA NITROGEN 8 mg/dL (7-21); CALCIUM 9.5 mg/dL (8.4-10.5); GFR NON-AFRICAN AMERICAN > 60
--- NOTE | 2018-12-24 17:36 | US ---
Date of service: 12/24/2018 HISTORY: 10 wks preg, vag spotting + pain LMP 10/18/2018. COMPARISON: None available. TECHNIQUE: Transvaginal only. Real -time technique with 2D, duplex and color Doppler FINDINGS: UTERUS: Measures 5.7 x 6.1 x 10.0 cm. Normal in size and appearance. No fibroid or other mass lesion seen. ENDOMETRIUM: Measures 27.1 mm in diameter. Heterogeneous endometrium. Small gestational sac 8.6 mm. Out of range. Below threshold for calculation of reliable gestational age. No visible yolk sac or pole. CERVIX: No cervical abnormality identified. RIGHT OVARY: Measures 2.7 x 2.2 x 3.4 cm. No solid mass. Normal flow. LEFT OVARY: Measures 2.5 x 3.9 x 3 cm. No solid mass. Normal flow. Simple cyst 2.2 x 2.5 x 1.8 FREE FLUID: No significant free fluid noted. OTHER FINDINGS: None. IMPRESSION: Well-formed gestational sac without yolk sac or pole. Mean sac measurement 8.6 mm out of range. Below threshold for calculation of reliable gestational age. Simple cyst left adnexa.
[2018-12-24 18:10] VITALS: BP 118/75; PULSE 85; O2SAT 100
== END 2018-12-24 19:03 | disposition home or self-care (01) ==
LOC: ED 16:21
DX: O26.891 Other specified pregnancy related conditions, first trimester (principal); Z3A.00 Weeks of gestation of pregnancy not specified

== ENCOUNTER 2019-01-03 02:23 | Emergency (ER) | payer MEDICAID, OTHER ==
[2019-01-03 02:23] VITALS: BMI 43.5
[2019-01-03 03:07] VITALS: RESP 14; TEMP 98.3
[2019-01-03] MEDS ORDERED: Morphine 2 mg/ml ISec IVP STA (03:25)
[2019-01-03] MEDS ORDERED: Sodium Chloride 0.9% 1,000 ML IV STA (03:26)
--- NOTE | 2019-01-03 03:26 | ED PDOC ---
Arrival/HPI - General Chief Complaint: Female Genitourinary Time Seen by Provider: 01/03/19 03:19 Historian: Patient - History of Present Illness Narrative History of Present Illness (Text): 01/03/19 03:24 Evelina Mclean is a 43 year old female, P:2 A:7, currently approximately 5 weeks , who presents to the ED complaining of abdominal cramping. Patient was recently seen in the ED here and at [facility] for similar complaints, most recently on 12/31/18 at [facility], told her symptoms were possibly due to threatened miscarriage and advised to follow-up with her OBGYN. Patient states her abdominal cramping had reoccured and came in for further evaluation.Patient states she had some spotting earlier in the day. Patient denies any fever, chills, chest pain, shortness of breath, nausea, vomiting, diarrhea, back pain, neck pain, headache, dizziness, or any other complaints. Symptom Onset: Gradual Symptom Course: Unchanged Activities at Onset: Light Context: Home Past Medical History - Provider Review Nursing Documentation Reviewed: Yes - Past History Past History: Non-Contributing - Infectious Disease Hx of Infectious Diseases: None - Tetanus Immunization Tetanus Immunization: Unknown - Past Medical History Past Medical History: No Previous - Musculoskeletal/Rheumatological Hx Back Pain: Yes - Gastrointestinal Hx Gastrointestinal Disorders: No - Genitourinary/Gynecological Hx Genitourinary Disorders: No - Psychiatric Hx Anxiety: No Hx Bipolar Disorder: No Hx Depression: No Hx Post Traumatic Stress Disorder: No Hx Schizophrenia: No Hx Substance Use: No - Past Surgical History Past Surgical History: No Previous - Surgical History Hx Musculoskeletal Surgery: Yes (shoulder) Other/Comment: right rotator cuff surgery - Anesthesia Hx Anesthesia: Yes Hx Anesthesia Reactions: No Hx Malignant Hyperthermia: No - Suicidal Assessment Feels Threatened In Home Enviroment: No Family/Social History - Physician Review Nursing Documentation Reviewed: Yes Family/Social History: Unknown Family HX Smoking Status: Never Smoked Hx Alcohol Use: No Hx Substance Use: No Hx Substance Use Treatment: No Allergies/Home Meds Allergies/Adverse Reactions: Allergies No Known Allergies Allergy (Verified 12/30/18 22:06) Home Medications: Home Meds Medication Instructions Recorded Confirmed No Known Home Med 12/24/18 01/03/19 Review of Systems - Physician Review All systems were reviewed & negative as marked: Yes - Review of Systems Constitutional: Normal. absent: Fevers Eyes: Normal ENT: Normal Respiratory: Normal. absent: SOB, Cough Cardiovascular: Normal Gastrointestinal: Abdominal Pain. absent: Diarrhea, Vomiting Genitourinary Female: Vaginal Bleeding. absent: Dysuria, Frequency, Hematuria, Urine Output Changes Musculoskeletal: Normal. absent: Back Pain, Neck Pain Skin: Normal. absent: Rash Neurological: Normal. absent: Headache, Dizziness Endocrine: Normal Hemo/Lymphatic: Normal Psychiatric: Normal Physical Exam Vital Signs Reviewed: Yes Vital Signs Temp Pulse Resp BP Pulse Ox 01/03/19 03:04 98.3 F 88 14 114/74 96 Temperature: Afebrile Blood Pressure: Normal Pulse: Regular Respiratory Rate: Normal Appearance: Positive for: Well-Appearing, Non-Toxic, Comfortable Pain Distress: None Mental Status: Positive for: Alert and Oriented X 3 - Systems Exam Head: Present: Atraumatic, Normocephalic Pupils: Present: PERRL Extroacular Muscles: Present: EOMI Conjunctiva: Present: Normal Mouth: Present: Moist Mucous Membranes Neck: Present: Normal Range of Motion Respiratory/Chest: Present: Clear to Auscultation, Good Air Exchange. No: Respiratory Distress, Accessory Muscle Use Cardiovascular: Present: Regular Rate and Rhythm, Normal S1, S2. No: Murmurs Abdomen: No: Tenderness, Distention, Peritoneal Signs Back: Present: Normal Inspection Upper Extremity: Present: Normal Inspection. No: Cyanosis, Edema Lower Extremity: Present: Normal Inspection. No: Edema Neurological: Present: GCS=15, CN II-XII Intact, Speech Normal Skin: Present: Warm, Dry, Normal Color. No: Rashes Psychiatric: Present: Alert, Oriented x 3, Normal Insight, Normal Concentration Medical Decision Making ED Course and Treatment: 01/03/19 03:24 Impression: 43 year old female complaining of abdominal cramping and vaginal bleeding. Plan: -- Transvaginal US -- Labs, Beta-HCG -- IV fluids -- Morphine -- Reassess and disposition Prior Visits: Notes and results from previous visits were reviewed. Progress Notes: 01/03/19 05:36 Transvaginal US: The uterus measures 11.6x5.7x6 cm. Anteverted uterus. Endometrium measures 23 mm in thickness. Normal cervical length measuring 3.6 cm. Single, intrauterine gestational sac measuring 9.2 mm. No pole is identified. Yolk sac is noted. Left ovarian corpus it seems as measuring 2.5 cm. Normal right ovary. Impression: Single intrauterine gestational sac. No evidence of pole. - Lab Interpretations I have reviewed the lab results: Yes - RAD Interpretation Asset Accountant: Radiologist - Scribe Statement The provider has reviewed the documentation as recorded by the Scribe Susana Gaona Provider Scribe Attestation: All medical record entries made by the Scribe were at my direction and personally dictated by me. I have reviewed the chart and agree that the record accurately reflects my personal performance of the history, physical exam, medical decision making, and the department course for this patient. I have also personally directed, reviewed, and agree with the discharge instructions and disposition. Disposition/Present on Arrival - Present on Arrival Any Indicators Present on Arrival: No History of DVT/PE: No History of Uncontrolled Diabetes: No Urinary Catheter: No History of Decub. Ulcer: No History Surgical Site Infection Following: None - Disposition Have Diagnosis and Disposition been Completed?: Yes Diagnosis: Threatened Disposition: HOME/ ROUTINE Disposition Time: 05:45 Patient Plan: Discharge Condition: GOOD Discharge Instructions (ExitCare): Threatened Miscarriage (DC) Additional Instructions: Rest/no strenuous physical activity/follow up with your hat maker doctor today as scheduled Referrals: Jaylyn Bernard MD [Primary Care Provider] - Follow up with primary Forms: [employer] (Irish)
[2019-01-03 03:59] LABS: HEMOGLOBIN 10.7 g/dL (12.0-16.0); MEAN CELL VOLUME 80.6 fl (80.0-105.0); MEAN CORPUSCULAR HEMOGLOBIN 25.9 pg (25.0-35.0); MEAN CORPUSCULAR HGB CONC 32.1 g/dl (31.0-37.0); MEAN PLATELET VOLUME 9.9 fl (7.0-11.0); RBC 4.13 10^6/uL (3.5-6.1); RED CELL DISTRIBUTION WIDTH 14.1 % (11.5-14.5); WHITE BLOOD COUNT 9.8 10^3/uL (4.5-11.0)
[2019-01-03 05:06] LABS: ALBUMIN 3.9 g/dL (3.0-4.8); ALT/SGPT 34 U/L (7-56); AST/SGOT 34 U/L (14-36); BLOOD UREA NITROGEN 13 mg/dL (7-21); CALCIUM 8.8 mg/dL (8.4-10.5); GFR NON-AFRICAN AMERICAN > 60
[2019-01-03 06:00] VITALS: BP 123/81; PULSE 72; O2SAT 100
--- NOTE | 2019-01-03 10:37 | US ---
Date of service: 01/03/2019 HISTORY: Unspecified pain. LMP 10/18/2018 COMPARISON: 12/24/2018. TECHNIQUE: Transvaginal only. Real -time technique with 2D, duplex and color Doppler FINDINGS: UTERUS: Measures 5.7 x 6 x 11.6 cm. Normal in size and appearance. No fibroid or other mass lesion seen. ENDOMETRIUM: Measures 20.7 mm in diameter. Gestational sac and yolk sac identified. Gestational sac measurement 9.2 mm unchanged compared to the prior study 12/24/2018. Out of range. Below threshold for calculation of reliable gestational age. CERVIX: No cervical abnormality identified. Closed cervix measures 3.6 cm in length. RIGHT OVARY: Measures 2 x 3.1 x 3.1 cm. No solid mass. Normal flow. LEFT OVARY: Measures 2.9 x 2.4 x 3.6 cm. No solid mass. Normal flow. Simple cyst 1.7 x 2.6 x 1.6 similar finding identified previously. FREE FLUID: No significant free fluid noted. OTHER FINDINGS: None. IMPRESSION: Redemonstration of well-formed gestational sac. Sac measurements unchanged. Yolk sac identified. No pole apparent. Simple cyst left adnexa. Concordant findings (preliminary report) provided by [employer].
== END 2019-01-03 05:59 | disposition home or self-care (01) ==
LOC: ED 02:23
DX: O20.0 Threatened abortion (principal); Z3A.01 Less than 8 weeks gestation of pregnancy
CPT/HCPCS: 76817; 80053; 84702; 85027; 96361; 96374; 99283; J2270; J7030